=== PATIENT | female | born 1950 | race Two or more races ===

== ENCOUNTER 2020-11-08 10:15 | Inpatient (IN) | payer OTHER ==
[~2020-11-08] VITALS: Ht 154.9 cm; Wt 79.4 kg
[2020-11-08] MEDS ORDERED: MYFORTIC360 MG PO (13:31)
[2020-11-08] MEDS ORDERED: MILLIPRED5 MG PO (13:33)
[2020-11-08] MEDS ORDERED: DILTIAZEM ER300 MG PO (13:33)
[2020-11-08] MEDS ORDERED: SIMVAST PO (13:33)
[2020-11-08] MEDS ORDERED: AVAPRO150 MG PO (13:34)
[2020-11-15] MEDS ORDERED: SIMVASTATIN20 MG (08:05)
[2020-11-15] MEDS ORDERED: LATANOPROST2.5 ML (08:06)
[2020-11-15] MEDS ORDERED: METFORMIN HCL500 M1 (08:06)
[2020-11-15] MEDS ORDERED: COMBIGAN EYE DRO5 ML (08:06)
[2020-11-15] MEDS ORDERED: VOLTAREN ARTHRI20 GM (08:06)
[2020-11-16] MEDS ORDERED: PERCOCET 5-3251 EACH PO (17:50)
[2020-11-16] MEDS ORDERED: ELIQUIS2.5 MG PO (17:50)
[2020-11-16] MEDS ORDERED: CEFADROXIL500 MG PO (17:50)
== END 2020-11-16 20:25 | DRG 470 ==
LOC: O/R 11-14 05:40 → SURG 11-14 05:40 → SURH 11-14 10:15 → SURG 11-14 16:17
PROVIDERS: ADMIT Orthopaedic Surgery; ATTEND Orthopaedic Surgery
PROC: 0SND0ZZ Release Left Knee Joint, Open Approach (ICD-10-PCS; 2020-11-14)
PROC: 0QUF07Z Supplement Left Patella with Autologous Tissue Substitute, Open Approach (ICD-10-PCS; 2020-11-14)
PROC: 3E0F7SF Introduction of Other Gas into Respiratory Tract, Via Natural or Artificial Opening (ICD-10-PCS; 2020-11-14)
PROC: 8E0ZXY6 Isolation (ICD-10-PCS; 2020-11-14)
PROC: 0SRD0J9 Replacement of Left Knee Joint with Synthetic Substitute, Cemented, Open Approach (ICD-10-PCS; principal; 2020-11-14 14:15)
DX: M17.12 Unilateral primary osteoarthritis, left knee (principal); D62 Acute posthemorrhagic anemia; D84.9 Immunodeficiency, unspecified; M81.0 Age-related osteoporosis without current pathological fracture; M22.12 Recurrent subluxation of patella, left knee; I10 Essential (primary) hypertension; E11.9 Type 2 diabetes mellitus without complications; E78.00 Pure hypercholesterolemia, unspecified; Z20.822 Contact with and (suspected) exposure to COVID-19

== ENCOUNTER 2021-02-19 09:00 | Outpatient (CLI) | payer OTHER ==
[~2021-02-19 09:00] MED LIST: AVAPRO150 MG PO; CEFADROXIL500 MG PO; COMBIGAN EYE DRO5 ML; DILTIAZEM ER300 MG PO; ELIQUIS2.5 MG PO; LATANOPROST2.5 ML; METFORMIN HCL500 M1; MILLIPRED5 MG PO; MYFORTIC360 MG PO; PERCOCET 5-3251 EACH PO; SIMVAST PO; SIMVASTATIN20 MG; VOLTAREN ARTHRI20 GM
== END 2021-02-19 09:15 | disposition home or self-care (01) ==
LOC: PPH VACUNA 09:00
PROVIDERS: ATTEND Emergency Medicine Pediatric Emergency Medicine
DX: Z23 Encounter for immunization (principal)

== ENCOUNTER 2021-05-24 11:20 | Outpatient (CLI) | payer OTHER | END 2021-05-24 11:23 | disposition home or self-care (01) | LOC: SONOGRAMA 11:20 | PROVIDERS: ATTEND Pathology Anatomic Pathology & Clinical Pathology | DX: E04.2 Nontoxic multinodular goiter (principal) ==